=== PATIENT | male | born 1970 | race Caucasian/White ===

== ENCOUNTER 2016-11-29 14:37 | Outpatient (CLI) | payer MEDICARE, MEDICAID ==
[2016-11-29 19:58] LABS: ALBUMIN/GLOBULIN RATIO 1.3 (1.0-2.2); BILIRUBIN,TOTAL 0.7 mg/dL (0.2-1.0); BUN - BLOOD UREA NITROGEN 20 mg/dL (6-20); CALCIUM 9.1 mg/dL (8.5-10.3); CARBON DIOXIDE - CO2 30 mmol/L (21-32); CHLORIDE 103 mmol/L (101-111); CHOL/HDL RATIO 5.2 (<5.0); CHOLESTEROL 136 mg/dL; CREATININE 1.1 mg/dL (0.6-1.2); GFR - MDRD 73 (>89); GLUCOSE 121 mg/dL (70-100); HDL CHOLESTEROL 26 mg/dL; LDL/HDL RATIO 2.5 (<3.6); SODIUM 140 mmol/L (135-145); TOTAL PROTEIN 7.4 g/dL (6.7-8.2); TRIGLYCERIDES 226 mg/dL; VLDL CHOLESTEROL 45 mg/dL
[2016-11-29 20:00] LABS: BASOPHILS # (AUTO) 0.1 10^3/uL (0.0-0.1); BASOPHILS % (AUTO) 0.8 %; EOSINOPHILS # (AUTO) 0.4 10^3/uL (0.0-0.7); EOSINOPHILS % (AUTO) 3.9 %; HCT - HEMATOCRIT 48.8 % (42.0-52.0); HGB - HEMOGLOBIN 16.2 g/dL (14.0-18.0); LYMPHOCYTES # (AUTO) 2.6 10^3/uL (1.5-3.5); LYMPHOCYTES % (AUTO) 23.8 %; MEAN CORPUSCULAR HEMOGLOBIN 27.1 pg (27.0-31.0); MEAN CORPUSCULAR HGB CONC 33.3 g/dL (32.0-36.0); MEAN CORPUSCULAR VOLUME 81.2 fL (80.0-94.0); MEAN PLATELET VOLUME 10.5 fL (7.4-11.4); MONOCYTES # (AUTO) 0.7 10^3/uL (0.0-1.0); MONOCYTES % (AUTO) 6.6 %; NEUTROPHILS # (AUTO) 7.2 10^3/uL (1.5-6.6); NEUTROPHILS % (AUTO) 64.9 %; NUCLEATED RED BLOOD CELLS AUTO 0.1 /100WBC; RED CELL DISTRIBUTION WIDTH 14.4 % (12.0-15.0); UNCORRECTED WHITE BLOOD COUNT 11.1 x10^3/uL; WHITE BLOOD COUNT 11.1 x10^3/uL (4.8-10.8)
== END 2016-11-29 14:38 | disposition home or self-care (01) ==
LOC: LAB.N 14:37
PROVIDERS: ATTEND Family Medicine
DX: I10 Essential (primary) hypertension (principal); E78.5 Hyperlipidemia, unspecified
CPT/HCPCS: 36415; 80053; 80061; 85025

== ENCOUNTER 2017-09-15 13:45 | Outpatient (CLI) | payer MEDICARE, MEDICAID ==
[2017-09-15 19:25] LABS: ALBUMIN 3.8 g/dL (3.2-5.5); ALKALINE PHOSPHATASE 103 IU/L (42-121); ALT ALANINE AMINOTRANSFERASE 35 IU/L (10-60); AST ASPARTATE AMINOTRANSFERASE 28 IU/L (10-42); BILIRUBIN,TOTAL 0.7 mg/dL (0.2-1.0); BUN - BLOOD UREA NITROGEN 15 mg/dL (6-20); CALCIUM 8.9 mg/dL (8.5-10.3); CARBON DIOXIDE - CO2 25 mmol/L (21-32); CHLORIDE 102 mmol/L (101-111); CHOL/HDL RATIO 4.1 (<5.0); CHOLESTEROL 118 mg/dL; CREATININE 0.8 mg/dL (0.6-1.2); GFR - MDRD 105 (>89); GLUCOSE 135 mg/dL (70-100); HDL CHOLESTEROL 29 mg/dL; LDL CHOLESTEROL,CALCULATED 56 mg/dL; LDL/HDL RATIO 1.9 (<3.6); SODIUM 136 mmol/L (135-145); TOTAL PROTEIN 7.5 g/dL (6.7-8.2); VLDL CHOLESTEROL 33 mg/dL
== END 2017-09-15 13:46 | disposition home or self-care (01) ==
LOC: LAB.N 13:45
PROVIDERS: ATTEND Family Medicine
DX: I10 Essential (primary) hypertension (principal); E78.5 Hyperlipidemia, unspecified
CPT/HCPCS: 36415; 80053; 80061; 83721

== ENCOUNTER 2018-10-16 08:00 | Outpatient (CLI) | payer MEDICARE, MEDICAID ==
[2018-10-16 19:22] LABS: ALBUMIN 3.8 g/dL (3.2-5.5); ALBUMIN/GLOBULIN RATIO 1.2 (1.0-2.2); ALKALINE PHOSPHATASE 102 IU/L (42-121); ALT ALANINE AMINOTRANSFERASE 29 IU/L (10-60); AST ASPARTATE AMINOTRANSFERASE 24 IU/L (10-42); BILIRUBIN,TOTAL 0.4 mg/dL (0.2-1.0); BUN - BLOOD UREA NITROGEN 20 mg/dL (6-20); CARBON DIOXIDE - CO2 24 mmol/L (21-32); CHLORIDE 106 mmol/L (101-111); CHOL/HDL RATIO 3.9 (<5.0); CHOLESTEROL 125 mg/dL; CREATININE 0.9 mg/dL (0.6-1.2); GFR - MDRD 91 (>89); GLUCOSE 186 mg/dL (70-100); HDL CHOLESTEROL 32 mg/dL; LDL CHOLESTEROL,CALCULATED 65 mg/dL; SODIUM 141 mmol/L (135-145); VLDL CHOLESTEROL 28 mg/dL
== END 2018-10-16 23:59 | disposition home or self-care (01) ==
LOC: LAB.N 08:00
PROVIDERS: ATTEND Physician Assistant Medical
DX: E11.9 Type 2 diabetes mellitus without complications (principal)
CPT/HCPCS: 36415; 80053; 80061; 83721

== ENCOUNTER 2018-12-24 13:55 | Outpatient (CLI) | payer MEDICARE, MEDICAID | END 2018-12-24 13:56 | disposition home or self-care (01) | LOC: NS 13:55 | PROVIDERS: ATTEND Physician Assistant Medical | DX: Z71.3 Dietary counseling and surveillance (principal); E11.8 Type 2 diabetes mellitus with unspecified complications; E78.00 Pure hypercholesterolemia, unspecified; E66.01 Morbid (severe) obesity due to excess calories; Z68.43 Body mass index [BMI] 50.0-59.9, adult | CPT/HCPCS: 97802 ==

== ENCOUNTER 2019-01-21 15:16 | Outpatient (CLI) | payer MEDICARE, MEDICAID | END 2019-01-21 15:17 | disposition home or self-care (01) | LOC: NS 15:16 | PROVIDERS: ATTEND Physician Assistant Medical | DX: Z71.3 Dietary counseling and surveillance (principal); E11.8 Type 2 diabetes mellitus with unspecified complications; E78.00 Pure hypercholesterolemia, unspecified | CPT/HCPCS: 97803 ==

== ENCOUNTER 2019-04-02 14:54 | Outpatient (CLI) | payer MEDICARE, MEDICAID ==
[2019-04-02 16:59] VITALS: BP 138/83
--- NOTE | 2019-04-02 16:59 | SLEEP CARE CONSULTATION ---
Information from patient questionnaire entered by Becca Carrion. I have reviewed and concur with the information entered by Becca Carrion. This document represents the service I personally performed and the decisions made by me, Evelia Fernández MD, [facility]. History of Present Illness Reason for Visit: New patient, Previously diagnosed sleep apnea (AHI: 75.1), sleep apnea on CPAP therapy, Re-establish care Chief Complaint: reports: Other (previously diagnosed sleep apnea) Duration of Symptoms: long time Usual bedtime: 1000 Time it takes to fall asleep: 60+ minutes Snores at night: Yes Observed to quit breathing while asleep: Yes Sleeps alone due to snoring: No Number of times waking at night: 6+ Reasons for waking at night: reports: Choking, Snoring, Gasping for air, Pain, Bathroom Toss, Turn, or Twitch while sleeping: Yes Recalls having dreams: No Usually gets out of bed at: 1600 Feels refreshed in the morning: No Morning headache: No Sleepy or fatigued during the day: Yes Ever fallen asleep while driving: Yes Takes day naps: No Dreams during day naps: No Prior sleep studies: Yes Year and Where: 2007 [facility] Additional HPI information: I had the pleasure of seeing Mr. Pedraza today regarding very severe obstructive sleep apnea-hypopnea. As you know, he is a 49 year old gentleman who was diagnosed with the sleep-disordered breathing here in 2007. The AHI was 75.1 and keke oxygen saturation, 81%. He was prescribed a CPAP device set at 13 cmH2O. He uses every night and all night. The compliance data show usage in 178 out of the past 178 nights, averaging 9.2 hours a night. The residual AHI is 1.7 and average air leak is 9.7 L/minute. He wears a ResMed full face mask. He gets his supplies from [employer]. He finds the treatment very beneficial and cannot sleep without his CPAP. CPAP Compliance Data - Data Reviewed with Patient Average duration of nightly device use: 8h 31m Compliance rate %: 100 Current pressure setting (cmH2O): 13 Subjective Initial [place] Sleepiness Scale score: 2 Past Medical History Past Medical History: reports: Hypertension, Diabetes, Insulin resistance, GERD Social History The patient's occupation is not employed. Patient is Single and lives in [place]. Have you smoked in the past 12 months: No Alcohol use: No Caffeine use: Yes Caffeine amount and frequency: 2 cups/day Family History Family history of sleep disordered breathing: Yes Family Hx Sleep Apnea: Sibling: Sleep apnea - Treated Allergies and Home Medications Drug allergies reviewed: Yes Home medication list reviewed: Yes Review of Systems Weight gain over past 5 years: 75 Cardiovascular: reports: high blood pressure, leg or foot swelling Respiratory: reports: wheeze, chronic cough Gastrointestinal: reports: heartburn, diarrhea Neurological: denies: headaches, seizure, head trauma, disorientation, speech dysfunction, gait or balance problems, fainting or unconsciousness, other Psychiatric: denies: Attention Deficit Hyperactivity, anxiety, depression, mood disorder, claustrophobia, other Ear/Nose/Throat: reports: nasal congestion, sinus problems, dry mouth/throat Endocrine: reports: excessive thirst, increased urination Musculoskeletal: denies: joint pain, neck pain, back pain, joint swelling, muscle pain or cramping, mobility problems, other Immunologic: denies: sneezing, rash, itching, allergies to food or environment, other Physical Exam Vital signs obtained and entered by: Dr. Fernández Blood Pressure: 138/83 Cuff size: regular Heart Rate: 76 O2 Saturation: 95 Height: 6 ft 4 in Weight: 446 lb Body Mass Index: 54.3 BMI Classification: Obesity Class 3 Neck circumference: 21 Mood/affect: normal HEENT: No craniofacial malformation Nostrils: patent to airflow Turbinates: normal Septum: midline Mouth and throat: narrow oropharynx Soft palate: long Hard palate: normal Uvula: normal Uvula visualization: 50% Mallampati Class II Tongue: normal in size Tonsils: 2+ Chin and jaw: normal size and position Neck: normal w/o lymphadenopathy or thyromegaly Heart: regular rate and rhythm Lungs: clear bilaterally Abdomen: soft, non-tender Extremities: no edema or clubbing Neurologic: intact, no focal deficits Impression and Plan IMPRESSION: 1. Obstructive Sleep Apnea-Hypopnea Syndrome, very severe, as previously diagnosed. The patient has had good treatment compliance. The current pressure setting appears effective and comfortable. The patient experiences improvement on the treatment. Narrow oropharynx and obesity are common predisposing factors for obstructive sleep apnea-hypopnea syndrome. Pathophysiology of sleep-disord ered breathing was discussed. I will order him new supplies. Plan: 1. Prescription made for CPAP supplies and sent to [place]. 2. Try to lose weight. Bariatric surgery should be considered. 3. Return for follow up in a year or earlier if there is any problem. I spent 100% of this 20 minute visit face to face with the patient with greater than 50% of this was spent time counseling the patient and coordination of care.
== END 2019-04-02 14:55 | disposition home or self-care (01) ==
LOC: SC 14:54
PROVIDERS: ATTEND Internal Medicine Pulmonary Disease
DX: G47.33 Obstructive sleep apnea (adult) (pediatric) (principal); E66.9 Obesity, unspecified; Z68.43 Body mass index [BMI] 50.0-59.9, adult
CPT/HCPCS: 99203; G0463; 99212

== ENCOUNTER 2019-05-08 20:40 | Emergency (ER) | payer MEDICARE, MEDICAID ==
--- NOTE | 2019-05-08 21:43 | ED Physician Documentation ---
PD HPI LOWER EXT INJURY - Stated complaint Stated Complaint: LT TOE INFECTION - Chief complaint Chief Complaint: Ext Problem - History obtained from History obtained from: Patient - History of Present Illness PD HPI LOW EXT INJURY LOCATION: Left, Toe Timing - details: Abrupt onset Recently seen: Not recently seen - Additional information Additional information: This is a 49-year-old insulin-dependent diabetic who presents with complaints of infection in the left third toe. He noticed a little wound on the top of that this morning he has neuropathy so he did not have any pain in it. He thought it looked okay but then when he looked again tonight about 4 hours prior to presentation the toe was puffy and red and the redness is already spreading onto the dorsal aspect of his foot. Blood sugar was 200 after dinner tonight which she says is actually a little bit low for him. He does not feel nauseous. He has had no fever. He is already had a prior left pinky toe amputation due to a diabetic foot ulcer 6 or 7 years ago. Review of Systems Constitutional: denies: Fever GI: denies: Nausea Skin: reports: Lesions Endocrine: reports: Other (Blood sugar was 200 after dinner tonight) PD PAST MEDICAL HISTORY - Past Medical History Cardiovascular: Hypertension, High cholesterol Respiratory: Sleep apnea, CPAP use Endocrine/Autoimmune: Type 2 diabetes Psych: None Musculoskeletal: Osteoarthritis - Past Surgical History Past Surgical History: Yes Ortho: Other - Present Medications Home Medications: Ambulatory Orders Medication Instructions Recorded Confirmed Hydrochlorothiazide 25 mg PO DAILY 08/01/13 03/09/15 Losartan [Cozaar] 100 mg PO DAILY 08/01/13 03/09/15 Omeprazole [Prilosec] 20 mg PO DAILY 08/01/13 03/09/15 Pioglitazone [Actos] 45 mg PO DAILY 08/01/13 03/09/15 atenoloL [Tenormin] 25 mg PO BID 08/01/13 03/09/15 metFORMIN [Glucophage] 1,000 mg PO BID 08/01/13 03/09/15 Amlodipine Besylate 10 mg PO DAILY 03/09/15 03/09/15 Atorvastatin [Lipitor] 20 mg PO DAILY 03/09/15 03/09/15 Canagliflozin [Invokana] 01/18/16 Cephalexin [Keflex] 500 mg PO TID #21 capsule 01/18/16 Mupirocin 1 applic TP TID #15 oint...g. 01/18/16 Sulfamethoxazole/Trimethoprim 1 each PO BID #14 tablet 01/18/16 [Bactrim Ds Tablet] U500 Insulin 01/18/16 Levofloxacin [Levaquin] 750 mg PO DAILY #14 tablet 05/08/19 - Allergies Allergies/Adverse Reactions: Allergies Allergy/AdvReac Type Severity Reaction Status Date / Time No Known Drug Allergies Allergy Verified 05/08/19 20:46 - Social History Does the pt smoke?: No Smoking Status: Never smoker Does the pt drink ETOH?: No Does the pt have substance abuse?: No - Immunizations Immunizations are current?: Yes - POLST Patient has POLST: No PD ED PE NORMAL - Vitals Vital signs reviewed: Yes - General General: Alert and oriented X 3, No acute distress, Well developed/nourished, Other (Obese 49-year-old man is very pleasant.) - HEENT HEENT: Atraumatic, Other (No scleral icterus) - Derm Derm: Normal color, Warm and dry, Other (There is an open wound on the top of the left third toe. There is erythema and warmth to the toe. Erythema is spreading onto the dorsal aspect of the foot at the base of the third toe. There is erythema and thickening of the skin of the distal left leg consistent with chronic venous stasis) - Extremities Extremities: No tenderness to palpate, No edema - Neuro Neuro: Alert and oriented X 3. No: No sensory deficit (Patient cannot feel me touching his foot at all due to the diabetic neuropathy) - Psych Psych: Normal mood, Normal affect Results - Vitals Vitals: Vital Signs - 24 hr 05/08/19 20:46 Temperature 37.0 C Heart Rate 86 Respiratory 17 Rate Blood Pressure 170/86 H O2 Saturation 98 Oxygen O2 Source Room air - Labs Labs: Laboratory Tests 05/08/19 22:00 WBC 9.7 RBC 5.63 Hgb 15.4 Hct 47.5 MCV 84.4 MCH 27.4 MCHC 32.4 RDW 14.4 Plt Count 219 MPV 11.4 Neut # (Auto) 6.7 H Lymph # (Auto) 1.9 [place] # (Auto) 0.8 Eos # (Auto) 0.1 Baso # (Auto) 0.1 Absolute Nucleated RBC 0.00 Nucleated RBC % 0.0 PD MEDICAL DECISION MAKING - ED course Complexity details: reviewed results, d/w patient ED course: White blood cell count is normal. The patient received IV Levaquin and I am in a place him on oral Levaquin as an outpatient. He should follow-up with his primary care provider on Monday for recheck of the wound. Because he is diabetic he would probably benefit from wound care. Have recommended he follow- up with his primary care provider for that referral. He should return if the redness is spreading, he develops a fever he is nauseous and vomiting or other problems arise Departure - Departure Disposition: Home, Self Care Clinical Impression: Cellulitis of toe, left Diabetes Qualifiers: Diabetes mellitus type: type 1 Diabetes mellitus complication status: with skin complications Diabetes mellitus complication detail: with foot ulcer Qualified Code(s): E10.621 - Type 1 diabetes mellitus with foot ulcer; L97.509 - Non- pressure chronic ulcer of other part of unspecified foot with unspecified severity Condition: Good Instructions: ED Infec Skin Cellulitis Follow-Up: Lito Angel PA-C [Primary Care Provider] - Prescriptions: Levofloxacin [Levaquin] 750 mg PO DAILY #14 tablet Comments: Keep the wound on the toe covered but it should be inspected and washed daily with an antibacterial soap. Contact your primary care provider tomorrow for referral for wound care clinic for close monitoring. Take the Levaquin daily as prescribed. This antibiotic does have a rare association with tendinitis so if you develop pain or swelling over the joint or tendon it should immediately be discontinued and you should consult with your primary care provider about continuing antibiotics. Your cultures will not be available for about 3 days and you will be contacted if we need to change or add any antibiotics. Return if you have increasing spreading redness up the leg, fever, nausea and vomiting or the wound is getting significantly worse.
[2019-05-08] MEDS ORDERED: levoFLOXacin 750 MG/150 ML 750 MG/150 ML BAG IV ONE (21:44)
[2019-05-08] MEDS ORDERED: BACITRACIN ZINC OINT 1 PACKET TOP STA (21:44)
[2019-05-08 22:16] LABS: BASOPHILS # (AUTO) 0.1 10^3/uL (0.0-0.1); BASOPHILS % (AUTO) 0.7 %; EOSINOPHILS # (AUTO) 0.1 10^3/uL (0.0-0.7); EOSINOPHILS % (AUTO) 1.4 %; HGB - HEMOGLOBIN 15.4 g/dL (14.0-18.0); LYMPHOCYTES # (AUTO) 1.9 10^3/uL (1.5-3.5); LYMPHOCYTES % (AUTO) 19.3 %; MEAN CORPUSCULAR HEMOGLOBIN 27.4 pg (27.0-31.0); MEAN CORPUSCULAR HGB CONC 32.4 g/dL (32.0-36.0); MEAN CORPUSCULAR VOLUME 84.4 fL (80.0-94.0); MEAN PLATELET VOLUME 11.4 fL (7.4-11.4); MONOCYTES # (AUTO) 0.8 10^3/uL (0.0-1.0); MONOCYTES % (AUTO) 8.4 %; NEUTROPHILS # (AUTO) 6.7 10^3/uL (1.5-6.6); NEUTROPHILS % (AUTO) 69.4 %; PLT - PLATELET COUNT 219 10^3/uL (130-450); RED BLOOD COUNT 5.63 10^6/uL (4.70-6.10); RED CELL DISTRIBUTION WIDTH 14.4 % (12.0-15.0); WHITE BLOOD COUNT 9.7 x10^3/uL (4.8-10.8)
[2019-05-08 23:37] VITALS: BP 135/78
== END 2019-05-08 23:36 | disposition home or self-care (01) ==
LOC: ED 20:40
DX: L03.032 Cellulitis of left toe (principal); E10.621 Type 1 diabetes mellitus with foot ulcer; L97.529 Non-pressure chronic ulcer of other part of left foot with unspecified severity; E10.42 Type 1 diabetes mellitus with diabetic polyneuropathy; Z89.422 Acquired absence of other left toe(s); I87.8 Other specified disorders of veins; I10 Essential (primary) hypertension
CPT/HCPCS: 36415; 85025; 87040; 87070; 87181; 87205; 96365; 99284

== ENCOUNTER 2020-09-04 11:44 | Outpatient (CLI) | payer MEDICARE, MEDICAID ==
[2020-09-04 18:12] LABS: BASOPHILS # (AUTO) 0.1 10^3/uL (0.0-0.1); BASOPHILS % (AUTO) 0.8 %; EOSINOPHILS # (AUTO) 0.1 10^3/uL (0.0-0.7); EOSINOPHILS % (AUTO) 1.4 %; HCT - HEMATOCRIT 49.1 % (42.0-52.0); HGB - HEMOGLOBIN 16.1 g/dL (14.0-18.0); LYMPHOCYTES # (AUTO) 1.6 10^3/uL (1.5-3.5); LYMPHOCYTES % (AUTO) 17.8 %; MEAN CORPUSCULAR HGB CONC 32.8 g/dL (32.0-36.0); MEAN CORPUSCULAR VOLUME 85.5 fL (80.0-94.0); MEAN PLATELET VOLUME 12.1 fL (7.4-11.4); MONOCYTES # (AUTO) 0.6 10^3/uL (0.0-1.0); NEUTROPHILS # (AUTO) 6.4 10^3/uL (1.5-6.6); NEUTROPHILS % (AUTO) 72.3 %; PLT - PLATELET COUNT 231 10^3/uL (130-450); RED BLOOD COUNT 5.74 10^6/uL (4.70-6.10); RED CELL DISTRIBUTION WIDTH 14.1 % (12.0-15.0); WHITE BLOOD COUNT 8.8 x10^3/uL (4.8-10.8)
[2020-09-04 18:29] LABS: ALBUMIN 4.1 g/dL (3.2-5.5); ALBUMIN/GLOBULIN RATIO 1.4 (1.0-2.2); ALKALINE PHOSPHATASE 86 IU/L (42-121); ALT ALANINE AMINOTRANSFERASE 21 IU/L (10-60); AST ASPARTATE AMINOTRANSFERASE 16 IU/L (10-42); BILIRUBIN,TOTAL 0.7 mg/dL (0.2-1.0); BUN - BLOOD UREA NITROGEN 24 mg/dL (6-20); CALCIUM 8.8 mg/dL (8.5-10.3); CARBON DIOXIDE - CO2 24 mmol/L (21-32); CHLORIDE 104 mmol/L (101-111); CHOL/HDL RATIO 4.1 (<5.0); CHOLESTEROL 150 mg/dL; CREATININE 0.9 mg/dL (0.6-1.2); GFR - MDRD 90 (>89); GLUCOSE 207 mg/dL (70-100); HDL CHOLESTEROL 37 mg/dL; LDL CHOLESTEROL,CALCULATED 93 mg/dL; LDL/HDL RATIO 2.5 (<3.6); SODIUM 137 mmol/L (135-145); TRIGLYCERIDES 99 mg/dL; VLDL CHOLESTEROL 20 mg/dL
[2020-09-04 18:48] LABS: CREATININE,URINE 96.6 mg/dL; MICROALBUM/CREATININE RATIO,UR 9.3 ug/mg (<30.0); MICROALBUMIN,URINE 0.9 mg/dL (0-300.0)
[2020-09-04 20:15] LABS: ESTIMATED AVERAGE GLUCOSE 209 mg/dL (70-100); HEMOGLOBIN A1c% 8.9 % (4.27-6.07)
== END 2020-09-04 11:45 | disposition home or self-care (01) ==
LOC: LAB.N 11:44
PROVIDERS: ATTEND Family Medicine
DX: E11.9 Type 2 diabetes mellitus without complications (principal)
CPT/HCPCS: 36415; 80053; 80061; 82043; 82570; 83036; 83721; 85025

== ENCOUNTER 2021-01-07 11:36 | Outpatient (CLI) | payer MEDICARE, MEDICAID ==
--- NOTE | 2021-01-07 11:57 | SLEEP CARE CONSULTATION ---
Information from patient questionnaire entered by Pilar Hastings. I have reviewed and concur with the information entered by Pilar Hastings. This document represents the service I personally performed and the decisions made by , Arleth Montague ARNP. History of Present Illness Service Date and Time: 01/07/2021 1136 Previous diagnosis: Very Severe, Obstructive Sleep Apnea-Hypopnea Syndrome AHI: 75.1 (in 2007) Reason for follow up: annual (last seen 03/2019) Equipment type: CPAP Equipment obtained from: [employer] (not getting supplies, needs new prescription) Mask style: Full face Mask brand: Resmed Backup mask available: Yes (old mask) Last cushion change: 2 months Prior sleep studies: Yes Year and Where: 2007 - [facility] Type of Sleep Study: Polysomnography HPI additional information: LEILA PEREZ was diagnosed to have very severe, AHI 75.1, obstructive sleep apnea-hypopnea syndrome and returned today for CPAP therapy annual follow-up. CPAP Compliance Data - Data Reviewed with Patient Average duration of nightly device use: 9 hr 9 min Compliance rate %: 99 (180 days) Current pressure setting (cmH2O): 13 Humidity settin Average residual AHI: 1.3 Subjective Patient concerns: reports: dry mouth, nose, throat (often). denies: aerophagia, mask discomfort, air blowing in eyes, mask leak noise, condensation in mask/hose, nasal congestion, epistaxis, other Observed to snore while using device: No Current pressure setting perceived as: comfortable On therapy, patient: reports: sleeping better, awakening more refreshed, being more awake and alert during the day, more rested overall. denies: drowsiness while driving Initial [place] Sleepiness Scale score: 8 (in 2007) Current Monitor Sleepiness Scale score: 4 Allergies and Home Medications Home medication list reviewed: Yes (no changes) Review of Systems Review of systems same as previous: Yes (no changes) Physical Exam Heart Rate: 81 O2 Saturation: 98 Height: 6 ft 4 in Weight: 419 lb Weight change since last visit: 25 lb loss Body Mass Index: 51.0 BMI Classification: Morbidly Obese Impression and Plan 1. Obstructive Sleep Apnea-Hypopnea Syndrome, very severe, with excellent treatment compliance and good apnea control. On CPAP therapy, the patient has better sleep quality and is more rested overall. Patient has not been able to get supplies because he needed an annual appointment to check compliance. He is very compliant and an updated prescription will be faxed off to his DME. He has been getting some more mouth dryness in the mornings. Oral dryness can be reduced by adjusting humidity setting higher or heated hose lower or by adjusting both settings. Verbal instructions given on how to change humidity and heated hose settings with rationale explaining why to change. Patient voiced understanding. Patient's apnea severity and rationale for treatment to reduce apnea, improve sleep quality and reduce cardiovascular and cerebrovascular events was reviewed. I also reviewed the benefit of consistent device use of CPAP for hypertension, diabetes and gastric reflux. 2. Morbid obesity, unspecified. Patient has lost about 25 pounds since his last visit. Currently patients BMI is 51.0. He got a job that is allowing him to be more active and has been losing weight. Obesity increases the risk of apnea, CPAP pressure requirements and overall health risks especially cardiovascular and diabetes. Thus patient is advised to continue to lose weight. * Continue auto CPAP pressure at 13 cmH2O * Notify me if snoring with mask or feeling that the pressure is too much or too little * Continue to try to lose weight * Call this office if any problems using CPAP * Return for follow up in 1 year, or sooner if concerns arise Counseling Topics: Spare mask, Weight loss health impact Visit Type: In Office Time Spent with Patient (minutes): 12 Provider Statement: I spent 100% of the Face to Face Visit with the patient with greater than 50% spent counseling the patient and coordination of care.
== END 2021-01-07 11:37 | disposition home or self-care (01) ==
LOC: SC 11:36
PROVIDERS: ATTEND Nurse Practitioner Family
DX: G47.33 Obstructive sleep apnea (adult) (pediatric) (principal); E66.01 Morbid (severe) obesity due to excess calories; Z68.43 Body mass index [BMI] 50.0-59.9, adult
CPT/HCPCS: 99212; G0463

== ENCOUNTER 2021-05-04 15:59 | Outpatient (CLI) | payer MEDICARE, MEDICAID ==
--- NOTE | 2021-05-04 16:48 | XRAY Report ---
PROCEDURE: Chest 2 View X-Ray INDICATIONS: COUGH TECHNIQUE: 2 view(s) of the chest. COMPARISON: CXR 02/17/2006. FINDINGS: Surgical changes and devices: None. Lungs and pleura: No pleural effusions or pneumothorax. Lungs are clear. Mediastinum: Mediastinal contours are unchanged. Heart size is within normal limits. Bones and chest wall: No suspicious bony abnormalities. Soft tissues appear unremarkable. IMPRESSION: No acute cardiopulmonary abnormality identified. Reviewed by: Wilfred Lynn MD on 05/04/2021 4:47 PM PST Approved by: Wilfred Lynn MD on 05/04/2021 4:47 PM [facility] Station ID: [id number]
== END 2021-05-04 23:59 | disposition home or self-care (01) ==
LOC: DI.N 15:59
PROVIDERS: ATTEND Physician Assistant
DX: U07.1 COVID-19 (principal)
CPT/HCPCS: 71046; U0004

== ENCOUNTER 2021-05-28 08:00 | Outpatient (CLI) | payer MEDICARE, MEDICAID ==
[2021-05-28 18:00] LABS: ALBUMIN 3.8 g/dL (3.2-5.5); ALBUMIN/GLOBULIN RATIO 1.1 (1.0-2.2); BILIRUBIN,TOTAL 0.5 mg/dL (0.2-1.0); CALCIUM 8.9 mg/dL (8.5-10.3); CREATININE 0.8 mg/dL (0.6-1.2); POTASSIUM 4.1 mmol/L (3.5-5.0); TOTAL PROTEIN 7.2 g/dL (6.7-8.2)
[2021-05-28 18:05] LABS: CREATININE,URINE 65.7 mg/dL; MICROALBUM/CREATININE RATIO,UR 12.2 ug/mg (<30.0); MICROALBUMIN,URINE 0.8 mg/dL (0-300.0)
[2021-05-28 21:01] LABS: ESTIMATED AVERAGE GLUCOSE 240 mg/dL (70-100)
== END 2021-05-28 23:59 | disposition home or self-care (01) ==
LOC: LAB.WCP 08:00
PROVIDERS: ATTEND Internal Medicine
DX: E11.9 Type 2 diabetes mellitus without complications (principal); E88.81 Metabolic syndrome and other insulin resistance
CPT/HCPCS: 36415; 80053; 82043; 82570; 83036

== ENCOUNTER 2022-04-19 08:29 | Outpatient (CLI) | payer MEDICARE, MEDICAID ==
--- NOTE | 2022-04-19 13:06 | SLEEP CARE CONSULTATION ---
Information from patient questionnaire entered by Kanwal Hernandez. I have reviewed and concur with the information entered by Kanwal Hernandez. This document represents the service I personally performed and the decisions made by me, Arleth Montague ARNP. History of Present Illness Service Date and Time: 04/19/2022828 Previous diagnosis: Very Severe, Obstructive Sleep Apnea-Hypopnea Syndrome AHI: 75.1 (in 2007) Reason for follow up: annual (LAST SEEN 01/2021) Equipment type: CPAP (RESMED) Equipment obtained from: [employer] ([employer] supplies) Mask style: Full face (Quattro Pro) Mask brand: Resmed Backup mask available: Yes (old mask) Last cushion change: 2 months Prior sleep studies: Yes Year and Where: 2007 - [facility] Type of Sleep Study: Polysomnography HPI additional information: LEILA PEREZ was diagnosed to have very severe, AHI 75.1, obstructive sleep apnea-hypopnea syndrome and returned today for CPAP therapy annual follow-up. Sleep Study - Results Type of Sleep Study: Polysomnography Prior sleep studies: Yes Year and Where: 2007 - [facility] Sleep CPAP Compliance Data - Data Reviewed with Patient Average duration of nightly device use: 9 HRS 27 MIN Compliance rate %: 100 (180/180 days used) Current pressure setting (cmH2O): 13 Average residual AHI: 1.0 Central apnea: 0.1 Obstructive apnea: 0.4 Average large leak: 10.4 lpm Subjective Patient concerns: denies: aerophagia, mask discomfort, air blowing in eyes, mask leak noise, condensation in mask/hose, nasal congestion, dry mouth, nose, throat, epistaxis Observed to snore while using device: No Current pressure setting perceived as: comfortable On therapy, patient: reports: sleeping better, awakening more refreshed, being more awake and alert during the day, more rested overall. denies: drowsiness while driving Initial [place] Sleepiness Scale score: 8 (in 2007) Current [place] Sleepiness Scale score: 11 (04/19/2022) Allergies and Home Medications Drug allergies reviewed: Yes (lisinopril, ramelteon) Home medication list reviewed: Yes (no changes) Review of Systems Review of systems same as previous: Yes (no changes) Physical Exam Vital signs obtained and entered by: KANWAL Batres MA Blood Pressure: 110/62 (LEFT ARM) Cuff size: regular Heart Rate: 65 O2 Saturation: 96 Height: 6 ft 4 in Weight: 412 lb Body Mass Index: 50.1 BMI Classification: Morbidly Obese Impression and Plan 1. Obstructive Sleep Apnea-Hypopnea Syndrome, very severe, with good treatment compliance and good apnea control. On CPAP therapy, the patient has better sleep quality and is more rested overall. Patient has significant improvement of their sleep apnea and are satisfied with current CPAP therapy. Patient denies problems with oral dryness, nasal congestion, epistaxis, skin irritation or aerophagia. Patient's apnea severity and rationale for treatment to reduce apnea, improve sleep quality and reduce cardiovascular and cerebrovascular events was reviewed. I also reviewed the benefit of consistent device use of CPAP for hypertension, diabetes and gastric reflux. 2. Obesity, unspecified. Currently patients BMI is 50.1. Obesity increases the risk of apnea, CPAP pressure requirements and overall health risks especially cardiovascular and diabetes. Thus patient is advised to continue to try to lose weight. * Continue CPAP pressure at 13 cmH2O * Update supplies * Notify me if snoring with mask or feeling that the pressure is too much or too little * Attempt to lose weight * Call this office if any problems using CPAP * Return for follow up in 1 year, or sooner if concerns arise Counseling Topics: Spare mask, Weight loss health impact Visit Type: In Office Time Spent with Patient (minutes): 23 Provider Statement: I spent 100% of the Face to Face Visit with the patient with greater than 50% spent counseling the patient and coordination of care.
[2022-04-19 13:07] VITALS: BP 110/62
== END 2022-04-19 08:30 | disposition home or self-care (01) ==
LOC: SC 08:29
PROVIDERS: ATTEND Nurse Practitioner Family
DX: G47.33 Obstructive sleep apnea (adult) (pediatric) (principal); E66.01 Morbid (severe) obesity due to excess calories; Z68.43 Body mass index [BMI] 50.0-59.9, adult
CPT/HCPCS: 99212; G0463

== ENCOUNTER 2023-04-17 13:01 | Outpatient (CLI) | payer MEDICARE ==
--- NOTE | 2023-04-17 13:23 | SLEEP CARE CONSULTATION ---
Information from patient questionnaire entered by Kanwal Hernandez. I have reviewed and concur with the information entered by Kanwal Hernandez. This document represents the service I personally performed and the decisions made by me, Evelia Fernández MD, [facility]. History of Present Illness Service Date and Time: 04/17/2023 1301 Previous diagnosis: Very Severe, Obstructive Sleep Apnea-Hypopnea Syndrome AHI: 75.1 (in 2007) Reason for follow up: annual (LAST SEEN 04/2022) Equipment type: CPAP (RESMED NEED SD) Equipment obtained from: [employer] (getting supplies) Mask style: Full face (Quattro Pro) Prior sleep studies: Yes Year and Where: 2007 - [facility] Type of Sleep Study: Polysomnography HPI additional information: Mr. Ptee was diagnosed to have very severe obstructive sleep apnea-hypopnea syndrome and returns today for follow up of CPAP therapy. The patient purchased the device from [employer] and was fitted with a nasal mask. He continues to use the ResMed AirSense 10 nightly and all through the night. The compliance report shows that he uses the device 365 nights out of the past 365 nights, averaging 9.7 hours a night. He complains of no particular problem with the device such as soreness on the face, dry nose, epistaxis, nasal congestion or headache. He thinks that the pressure of 13 cmH2O is comfortable. On the CPAP therapy he notices improvement in his sleep quality, and that he wakes up feeling fresher in the morning and more awake/alert during the day. His notices no snore at all. [place] Sleepiness Scale score is 8. The average residual AHI is 1.0; and average air leak is 14.8 L/minute. His machine is now 8 years old. Sleep Study - Results Type of Sleep Study: Polysomnography Prior sleep studies: Yes Year and Where: 2007 - [facility] Sleep Subjective Initial [place] Sleepiness Scale score: 8 (in 2007) Current [place] Sleepiness Scale score: 8 (04/17/23) Allergies and Home Medications Drug allergies reviewed: Yes Home medication list reviewed: Yes Allergy and home medication list: Allergies lisinopril Adverse Reaction (Verified 05/29/19 12:00) Unknown ramelteon [From [employer]] Adverse Reaction (Verified 05/29/19 12:00) Unknown Review of Systems Review of systems same as previous: Yes (NO CHANGE) Physical Exam Vital signs obtained and entered by: KANWAL Batres MA Blood Pressure: 132/63 (LEFT ARM) Cuff size: regular Heart Rate: 79 O2 Saturation: 93 Height: 6 ft 4 in Weight: 418 lb Body Mass Index: 50.8 BMI Classification: Morbidly Obese Impression and Plan IMPRESSION: 1. Obstructive Sleep Apnea-Hypopnea Syndrome, very severe (AHI was 75.1) with the patient continuing to do well on nasal CPAP therapy. He has excellent compliance and significant clinical benefits. The current pressure appears effective and comfortable. There is some air leak, most likely because of his nieto. Overall, he is very satisfied with treatment, and plans to continue with it long-term. Because the CPAP is now older than the useful life of 5 years, I will order the patient a new one and make it an autoCPAP set between 8 and 13 cmH2O. The patient would like to switch durable medical supplier because he cannot order supplies through [employer] website. PLAN: 1. Prescription made for an autoCPAP, heated humidifier, and related supplies through [employer]. 2. Try to lose weight. 3. Return in one year for follow up or earlier if there is any problem with the treatment. Counseling Topics: Weight control Prescriptions: Auto CPAP Follow up with Sleep Care in: 1 year Visit Type: In Office Time Spent with Patient (minutes): 15 Provider Statement: I spent 100% of the Face to Face Visit with the patient with greater than 50% spent counseling the patient and coordination of care.
[2023-04-17 13:27] VITALS: BP 132/63; O2SAT 93
== END 2023-04-17 13:02 | disposition home or self-care (01) ==
LOC: SC 13:01
PROVIDERS: ATTEND Internal Medicine Pulmonary Disease
DX: G47.33 Obstructive sleep apnea (adult) (pediatric) (principal); E66.01 Morbid (severe) obesity due to excess calories; Z68.43 Body mass index [BMI] 50.0-59.9, adult
CPT/HCPCS: 99212; G0463

== ENCOUNTER 2023-09-06 07:16 | Outpatient (CLI) | payer MEDICARE ==
[2023-09-06 12:00] LABS: BASOPHILS # (AUTO) 0.1 10^3/uL (0.0-0.1); EOSINOPHILS # (AUTO) 0.2 10^3/uL (0.0-0.7); EOSINOPHILS % (AUTO) 2.4 %; HCT - HEMATOCRIT 51.1 % (42.0-52.0); HGB - HEMOGLOBIN 16.1 g/dL (14.0-18.0); LYMPHOCYTES # (AUTO) 2.2 10^3/uL (1.5-3.5); LYMPHOCYTES % (AUTO) 24.9 %; MEAN CORPUSCULAR HGB CONC 31.5 g/dL (32.0-36.0); MEAN CORPUSCULAR VOLUME 85.6 fL (80.0-94.0); MEAN PLATELET VOLUME 11.9 fL (7.4-11.4); MONOCYTES # (AUTO) 0.7 10^3/uL (0.0-1.0); MONOCYTES % (AUTO) 7.4 %; NEUTROPHILS # (AUTO) 5.6 10^3/uL (1.5-6.6); NEUTROPHILS % (AUTO) 63.2 %; PLT - PLATELET COUNT 251 10^3/uL (130-450); RED BLOOD COUNT 5.97 10^6/uL (4.70-6.10); RED CELL DISTRIBUTION WIDTH 13.9 % (12.0-15.0); WHITE BLOOD COUNT 8.9 x10^3/uL (4.8-10.8)
[2023-09-06 12:19] LABS: ALBUMIN/GLOBULIN RATIO 1.4 (1.0-2.2); ALKALINE PHOSPHATASE 102 IU/L (42-121); ALT ALANINE AMINOTRANSFERASE 34 IU/L (10-60); AST ASPARTATE AMINOTRANSFERASE 20 IU/L (10-42); BILIRUBIN,TOTAL 0.6 mg/dL (0.2-1.0); BUN - BLOOD UREA NITROGEN 20 mg/dL (6-20); CALCIUM 9.5 mg/dL (8.5-10.3); CARBON DIOXIDE - CO2 25 mmol/L (21-32); CHLORIDE 104 mmol/L (101-111); CHOL/HDL RATIO 4.9 (<5.0); CHOLESTEROL 138 mg/dL; CREATININE 0.9 mg/dL (0.6-1.3); GFR - MDRD 89 (>89); GLUCOSE 207 mg/dL (74-104); HDL CHOLESTEROL 28 mg/dL; LDL CHOLESTEROL,CALCULATED 65 mg/dL; LDL/HDL RATIO 2.3 (<3.6); POTASSIUM 4.1 mmol/L (3.5-4.5); SODIUM 136 mmol/L (135-145); TOTAL PROTEIN 6.9 g/dL (6.4-8.9); TRIGLYCERIDES 227 mg/dL (48-352); VLDL CHOLESTEROL 45 mg/dL
[2023-09-06 12:22] LABS: CREATININE,URINE 82.6 mg/dL
[2023-09-06 12:26] LABS: MICROALBUMIN,URINE < 0.7 mg/dL
[2023-09-06 12:28] LABS: THYROID STIMULATING HORMONE 1.46 uIU/mL (0.34-5.60)
== END 2023-09-06 07:17 | disposition home or self-care (01) ==
LOC: LAB.N 07:16
PROVIDERS: ATTEND Nurse Practitioner Family
DX: I10 Essential (primary) hypertension (principal); E78.5 Hyperlipidemia, unspecified; Z12.5 Encounter for screening for malignant neoplasm of prostate; E11.9 Type 2 diabetes mellitus without complications
CPT/HCPCS: 36415; 80053; 80061; 82043; 82570; 84443; 85025; G0103; 83721; 84153

== ENCOUNTER 2023-12-20 08:00 | Outpatient (CLI) | payer MEDICARE | END 2023-12-20 23:59 | disposition home or self-care (01) | LOC: LAB.N 08:00 | PROVIDERS: ATTEND Physician Assistant Medical | DX: B34.9 Viral infection, unspecified (principal) ==

== ENCOUNTER 2023-12-29 06:21 | Outpatient (CLI) | payer MEDICARE | END 2023-12-29 23:59 | disposition EMS.NT | LOC: EMS 06:21 | DX: E11.649 Type 2 diabetes mellitus with hypoglycemia without coma (principal); Z79.4 Long term (current) use of insulin ==

== ENCOUNTER 2023-12-31 15:34 | Emergency (ER) | payer MEDICARE ==
[2023-12-31 16:36] LABS: BASOPHILS # (AUTO) 0.1 10^3/uL (0.0-0.1); BASOPHILS % (AUTO) 0.7 %; EOSINOPHILS # (AUTO) 0.2 10^3/uL (0.0-0.7); EOSINOPHILS % (AUTO) 1.7 %; HCT - HEMATOCRIT 49.1 % (42.0-52.0); HGB - HEMOGLOBIN 16.2 g/dL (14.0-18.0); LYMPHOCYTES % (AUTO) 17.1 %; MEAN CORPUSCULAR HEMOGLOBIN 27.8 pg (27.0-31.0); MEAN CORPUSCULAR VOLUME 84.4 fL (80.0-94.0); MEAN PLATELET VOLUME 11.3 fL (7.4-11.4); MONOCYTES # (AUTO) 0.9 10^3/uL (0.0-1.0); MONOCYTES % (AUTO) 7.9 %; NEUTROPHILS # (AUTO) 8.4 10^3/uL (1.5-6.6); NEUTROPHILS % (AUTO) 71.9 %; PLT - PLATELET COUNT 320 10^3/uL (130-450); RED BLOOD COUNT 5.82 10^6/uL (4.70-6.10); RED CELL DISTRIBUTION WIDTH 14.3 % (12.0-15.0); WHITE BLOOD COUNT 11.7 x10^3/uL (4.8-10.8)
--- NOTE | 2023-12-31 16:38 | ED Physician Documentation ---
History of Present Illness - Stated complaint Stated Complaint: DIZZY - Chief complaint Chief Complaint: General - History obtained from History obtained from: Patient - History of Present Illness Pain level max: 0 Pain level now: 0 - Additonal information Additional information: Patient is a 53-year-old male, history of diabetes, presents to the emergency department stating that his blood sugar has been lower than usual over the past few days. He states he is supposed to be on Jardiance but is not taking that. He is on Actos as well as Humalog and metformin. He states that he uses a sliding scale for his insulin. Took 35 units of insulin for blood sugar of 280 today. States his blood sugar was down to 60 at home. Review of Systems Constitutional: denies: Fever, Chills Respiratory: denies: Cough GI: denies: Vomiting, Diarrhea : denies: Dysuria, Frequency, Hesitancy PD PAST MEDICAL HISTORY - Past Medical History Past Medical History: Yes Cardiovascular: Hypertension, High cholesterol Respiratory: Sleep apnea, CPAP use Endocrine/Autoimmune: Type 2 diabetes Psych: None Musculoskeletal: Osteoarthritis - Past Surgical History Past Surgical History: Yes Ortho: Other - Present Medications Home Medications: Ambulatory Orders Medication Instructions Recorded Confirmed Pioglitazone [Actos] 45 mg PO DAILY 08/01/13 04/17/23 atenoloL [Tenormin] 25 mg PO BID 08/01/13 04/17/23 hydroCHLOROthiazide 25 mg PO DAILY 08/01/13 04/17/23 [Hydrochlorothiazide] metFORMIN [Glucophage] 1,000 mg PO BID 08/01/13 04/17/23 Amlodipine Besylate 10 mg PO DAILY 03/09/15 04/17/23 Empagliflozin [Jardiance] See Rx Instructions .ROUTE .COMPLEX 04/19/22 04/17/23 - Allergies Allergies/Adverse Reactions: Allergies Allergy/AdvReac Type Severity Reaction Status Date / Time lisinopril AdvReac Unknown Verified 12/31/23 15:45 ramelteon [From Rozerem] AdvReac Unknown Verified 12/31/23 15:45 - Social History Does the pt smoke?: No Smoking Status: Never smoker Does the pt drink ETOH?: No Does the pt have substance abuse?: No - Immunizations Immunizations are current?: Yes - POLST Patient has POLST: No PD ED PE NORMAL - Vitals Vital signs reviewed: Yes - General General: Alert and oriented X 3, No acute distress - HEENT HEENT: Moist mucous membranes - Neck Neck: Supple, no meningeal sign - Cardiac Cardiac: RRR - Respiratory Respiratory: No respiratory distress, Clear bilaterally - Abdomen Abdomen: Soft, Non tender, Non distended - Derm Derm: Warm and dry - Neuro Neuro: Alert and oriented X 3 - Psych Psych: Normal mood, Normal affect Results - Vitals Vitals: Vital Signs - 24 hr 12/31/23 12/31/23 15:45 17:39 Temperature 36.5 C 36.5 C Heart Rate 76 72 Respiratory 20 18 Rate Blood Pressure 143/57 H 138/60 H O2 Saturation 93 94 Oxygen O2 Source Room air - Labs Labs: Laboratory Tests 12/31/23 12/31/23 12/31/23 15:49 16:17 16:17 WBC 11.7 H RBC 5.82 Hgb 16.2 Hct 49.1 MCV 84.4 MCH 27.8 MCHC 33.0 RDW 14.3 Plt Count 320 MPV 11.3 Neut # (Auto) 8.4 H Lymph # (Auto) 2.0 [place] # (Auto) 0.9 Eos # (Auto) 0.2 Baso # (Auto) 0.1 Absolute Nucleated RBC 0.00 Nucleated RBC % 0.0 Sodium 137 Potassium 3.7 Chloride 101 Carbon Dioxide 28 Anion Gap 8.0 BUN 13 Creatinine 0.7 Estimated GFR (MDRD) 119 Glucose 74 POC Whole Bld Glucose 57 L* Calcium 9.2 Total Bilirubin 1.0 AST 23 ALT 37 Alkaline Phosphatase 96 Total Protein 6.9 Albumin 4.0 Globulin 2.9 Albumin/Globulin Ratio 1.4 Lipase 51 PD Medical Decision Making - ED course Complexity details: reviewed results, re-evaluated patient, considered differential, d/w patient ED course: Patient is well-appearing, nontoxic. Afebrile. No significant lab abnormalities. Hypoglycemia resolved in the emergency department. Tolerating p.o. without difficulty. Recommend he decrease his insulin for his sliding scale by half. Recommend that he contact his doctor tomorrow for further recommendations regarding his diabetic medication. Patient is currently asymptomatic. Patient counseled regarding signs and symptoms for which I believe and urgent re-evaluation would be necessary. Patient with good understanding of and agreement to plan and is comfortable going home at this time This document was made in part using voice recognition software. While efforts are made to proofread this document, sound alike and grammatical errors may occur. Departure - Departure Disposition: 01 Home, Self Care Clinical Impression: Hypoglycemia Condition: Good Instructions: ED Diabetes Hypoglycemia Insulin React Follow-Up: Marcie Christine ARNP [Primary Care Provider] - Tomorrow Comments: Your blood sugar has gone up since you have been in the emergency department. Would recommend that you decrease your sliding scale insulin by half. Recommend that you contact your primary care provider tomorrow for further medication adjustments. Your laboratory testing is unremarkable here today. Forms: PCP List Discharge Date/Time: 12/31/23 17:39
[2023-12-31 16:53] LABS: ALBUMIN/GLOBULIN RATIO 1.4 (1.0-2.2); CALCIUM 9.2 mg/dL (8.5-10.3); CREATININE 0.7 mg/dL (0.6-1.3); POTASSIUM 3.7 mmol/L (3.5-4.5); TOTAL PROTEIN 6.9 g/dL (6.4-8.9)
[2023-12-31 17:41] VITALS: BP 138/60; O2SAT 94
== END 2023-12-31 17:39 | disposition home or self-care (01) ==
LOC: ED 15:34
DX: E11.649 Type 2 diabetes mellitus with hypoglycemia without coma (principal); Z91.148 Patient's other noncompliance with medication regimen for other reason; T50.996A Underdosing of other drugs, medicaments and biological substances, initial encounter
CPT/HCPCS: 36415; 80053; 83690; 85025; 99283

== ENCOUNTER 2024-01-19 16:03 | Outpatient (CLI) | payer MEDICARE ==
--- NOTE | 2024-01-19 16:48 | Sleep Patient Instructions ---
Sleep Center Visit Summary - Patient Visit Information Reason for Visit: 9 month follow up for PAP therapy - Patient Instructions Additional Instructions: You will continue with CPAP therapy with pressure set at 10-14 cmH2O. A supply prescription will be updated with your DME supplier. I have added a mask refitting to try a new full face mask. We encourage you to continue to try to lose weight. Please follow up with the sleep care office in 1 year. - Clinic Information Contact: [facility] [address] [place] [address] [email or web address] T: [phone]
--- NOTE | 2024-01-19 16:53 | SLEEP CARE CONSULTATION ---
Information from patient questionnaire entered by Kanwal Hernandez. I have reviewed and concur with the information entered by Kanwal Hernandez. This document represents the service I personally performed and the decisions made by , Arleth Montague ARNP. History of Present Illness Service Date and Time: 01/19/2024 1603 Previous diagnosis: Very Severe, Obstructive Sleep Apnea-Hypopnea Syndrome AHI: 75.1 (in 2007) Reason for follow up: other (9 MONTH F/U) Equipment type: CPAP (RESMED Airsense 11, s/u 05/05/23) Equipment obtained from: Other ([facility]: getting supplies) Mask style: Full face (Mirage Quattro) Backup mask available: No Last cushion change: 2 months Prior sleep studies: Yes Year and Where: 2007 - [facility] Type of Sleep Study: Polysomnography HPI additional information: LEILA PEREZ was diagnosed to have very severe, AHI 75.1, obstructive sleep apnea-hypopnea syndrome and returned today for CPAP therapy 9 month follow-up. Sleep Study - Results Type of Sleep Study: Polysomnography Prior sleep studies: Yes Year and Where: 2007 - [facility] CPAP Compliance Data - Data Reviewed with Patient Average duration of nightly device use: 10 hours 2 mins Compliance rate %: 99 (180/180 days used) Current pressure setting (cmH2O): 10-14 Average residual AHI: 2 Central apnea: 0.3 Obstructive apnea: 0.7 Hypopnea: 0.9 Average large leak: 8 L/min Subjective Patient concerns: reports: mask discomfort, dry mouth, nose, throat. denies: aerophagia, air blowing in eyes, mask leak noise, condensation in mask/hose, nasal congestion, epistaxis Observed to snore while using device: No Current pressure setting perceived as: comfortable On therapy, patient: reports: sleeping better, awakening more refreshed, being more awake and alert during the day, more rested overall. denies: drowsiness while driving Initial Solomon Sleepiness Scale score: 8 (in 2007) Current Solomon Sleepiness Scale score: 9 (01/19/24) Allergies and Home Medications Known drug allergies: Yes (as listed) Drug allergies reviewed: Yes Home medication list reviewed: Yes (no changes) Allergy and home medication list: Allergies lisinopril Adverse Reaction (Verified 01/19/24 16:29) Unknown ramelteon [From Rozerem] Adverse Reaction (Verified 01/19/24 16:29) Unknown Review of Systems Review of systems same as previous: Yes (no changes) Physical Exam Vital signs obtained and entered by: KANWAL Batres MA Blood Pressure: 136/73 (LEFT ARM) Cuff size: long Heart Rate: 75 O2 Saturation: 93 Height: 6 ft 4 in Weight: 392 lb 3.2 oz Body Mass Index: 47.7 BMI Classification: Morbidly Obese Impression and Plan 1. Obstructive Sleep Apnea-Hypopnea Syndrome, very severe, with good treatment compliance and good apnea control. On CPAP therapy, the patient has better sleep quality and is more rested overall. He has significant improvement of his sleep apnea and is comfortable with current CPAP therapy. He would like to try a different full face mask that is less claustrophobic provoking. I will add this to his supply prescription. Patient's apnea severity and rationale for treatment to reduce apnea, improve sleep quality and reduce cardiovascular and cerebrovascular events was reviewed. I also reviewed the benefit of consistent device use of CPAP for hypertension, diabetes, gastric reflux. 2. Obesity, unspecified. Currently patients BMI is 47.7. Obesity increases the risk of apnea, CPAP pressure requirements and overall health risks especially cardiovascular and diabetes. Thus patient is advised to lose weight. * Continue auto CPAP pressure at 10-14 cmH2O * Update supplies * Mask refitting for full face mask * Notify me if snoring with mask or feeling that the pressure is too much or too little * Attempt to lose weight * Call this office if any problems using CPAP * Return for follow up in 12 months, or sooner if concerns arise Counseling Topics: Spare mask, Weight loss health impact Prescriptions: Device supplies (and mask refitting for full face mask) Follow up with Sleep Care in: 1 year Visit Type: In Office Time Spent with Patient (minutes): 20 Provider Statement: I spent 100% of the Face to Face Visit with the patient with greater than 50% spent counseling the patient and coordination of care.
[2024-01-19 17:05] VITALS: BP 136/73; O2SAT 93
== END 2024-01-19 16:04 | disposition home or self-care (01) ==
LOC: SC 16:03
PROVIDERS: ATTEND Nurse Practitioner Family
DX: G47.33 Obstructive sleep apnea (adult) (pediatric) (principal); E66.01 Morbid (severe) obesity due to excess calories; Z68.42 Body mass index [BMI] 45.0-49.9, adult
CPT/HCPCS: 99213; G0463; 99212